=== PATIENT | female | born 1995 | race Two or more races ===

== ENCOUNTER 2017-04-29 12:53 | Emergency (ER) | payer MEDICAID ==
[~2017-04-29] VITALS: Ht 172.7 cm; Wt 122.0 kg
[2017-04-29 13:26] LABS: Basophils # (auto) 0.1 uL; Basophils % (auto) 0.7 % (0.0-2.0); Eosinophils # (auto) 0.1 uL; Eosinophils % (auto) 0.8 % (0.0-7.0); Hematocrit 40.9 % (36.0-46.0); Lymphocytes # (auto) 2.3 uL; Lymphocytes % (auto) 27.5 % (10.0-50.0); Mean Corpuscular Hemoglobin 29.2 pg (28.0-32.0); Mean Corpuscular Hgb Conc. 34.2 g/dL (32.0-36.0); Mean Corpuscular Volume 85.5 fL (80.0-100.0); Monocytes # (auto) 0.7 uL; Neutrophils # (auto) 5.2 uL; Platelet Count (auto) 399 10^3/uL (140-450); White Blood Cell 8.3 10^3/uL (4.4-10.8)
[2017-04-29 13:48] LABS: Albumin 3.9 g/dL (3.4-5.0); BUN/Creatinine Ratio 8.3; Calcium 8.9 mg/dL (8.5-10.1); Potassium 4.1 mmol/L (3.5-5.1)
[2017-04-29 13:52] LABS: Bilirubin, Total 1.1 mg/dL (0.2-1.0); Total Protein 7.4 g/dL (6.4-8.2)
[2017-04-29 16:07] VITALS: BP 160/94
[2017-04-29] MEDS ORDERED: KETOROLAC TROMETH 60MG/2ML VIAL IM ONE (16:45)
== END 2017-04-29 17:06 | disposition home or self-care (01) ==
LOC: ER 13:06
DX: N20.0 Calculus of kidney (principal); N39.0 Urinary tract infection, site not specified; N83.209 Unspecified ovarian cyst, unspecified side
CPT/HCPCS: 36415; 74176; 80053; 84702; 85025; 96372; 99285; J1885

== ENCOUNTER 2017-08-16 15:46 | Emergency (ER) | payer MEDICAID ==
[~2017-08-16] VITALS: Ht 167.6 cm; Wt 119.7 kg
[2017-08-16 16:21] LABS: Basophils # (auto) 0.1 uL; Basophils % (auto) 0.7 % (0.0-2.0); Eosinophils # (auto) 0.1 uL; Eosinophils % (auto) 0.7 % (0.0-7.0); Hematocrit 42.9 % (36.0-46.0); Hemoglobin 14.8 g/dL (12.2-16.2); Lymphocytes # (auto) 2.1 uL; Lymphocytes % (auto) 13.8 % (10.0-50.0); Mean Corpuscular Hemoglobin 29.7 pg (28.0-32.0); Mean Corpuscular Hgb Conc. 34.5 g/dL (32.0-36.0); Mean Corpuscular Volume 86.2 fL (80.0-100.0); Mean Platelet Volume 7.8 fL (6.9-10.8); Monocytes # (auto) 1.2 uL; Monocytes % (auto) 7.7 % (0.0-12.0); Neutrophils # (auto) 11.9 uL; Neutrophils % (auto) 77.1 % (37.0-80.0); Platelet Count (auto) 338 10^3/uL (140-450); Red Cell Distribution Width 12.2 % (11.8-14.3); White Blood Cell 15.4 10^3/uL (4.4-10.8)
[2017-08-16 16:48] LABS: Albumin 4.4 g/dL (3.4-5.0); BUN/Creatinine Ratio 11.6; Bilirubin, Total 1.1 mg/dL (0.2-1.0); Calcium 9.1 mg/dL (8.5-10.1); Potassium 3.7 mmol/L (3.5-5.1)
[2017-08-16 17:15] LABS: Urine Bilirubin Negative (Negative); Urine Blood 2+ /uL (Negative); Urine Color Yellow (Yellow); Urine Glucose Normal (Normal); Urine Ketone 2+ (Negative); Urine Mucus FEW (None Seen); Urine Nitrite Negative (Negative); Urine RBC 51 /hpf (0 - 4); Urine Squamous Epithelial Cell MOD /hpf (<5)
[2017-08-16 17:29] VITALS: BP 117/73
[2017-08-16] MEDS ORDERED: cefTRIAXone 1GM/50ML D5W 50 ML IV ONE (18:00)
== END 2017-08-16 18:41 | disposition home or self-care (01) ==
LOC: ER 15:50
DX: N13.2 Hydronephrosis with renal and ureteral calculous obstruction (principal); N39.0 Urinary tract infection, site not specified
CPT/HCPCS: 36415; 74176; 80053; 81001; 81025; 85025; 96365; 99285; J0696; 96360

== ENCOUNTER 2018-09-25 08:42 | Emergency (ER) | payer MEDICAID, OTHER ==
[~2018-09-25] VITALS: Ht 172.7 cm; Wt 104.3 kg
[2018-09-25] MEDS ORDERED: SODIUM CHLORIDE 0.9% 1,000 ML IV ONE (09:09)
[2018-09-25] MEDS ORDERED: KETOROLAC TROMETH 30 MG/ML 1ML VIAL IV ONE (09:15)
[2018-09-25 09:26] VITALS: BP 151/77
[2018-09-25 09:30] LABS: Basophils # (auto) 0 uL; Basophils % (auto) 0.3 % (0.0-2.0); Eosinophils # (auto) 0 uL; Eosinophils % (auto) 0.4 % (0.0-7.0); Hematocrit 44.7 % (36.0-46.0); Hemoglobin 14.9 g/dL (12.2-16.2); Lymphocytes # (auto) 1.9 uL; Lymphocytes % (auto) 16.3 % (10.0-50.0); Mean Corpuscular Hemoglobin 28.9 pg (28.0-32.0); Mean Corpuscular Hgb Conc. 33.3 g/dL (32.0-36.0); Monocytes # (auto) 0.6 uL; Monocytes % (auto) 5.5 % (0.0-12.0); Neutrophils # (auto) 8.9 uL; Neutrophils % (auto) 77.5 % (37.0-80.0); Platelet Count (auto) 309 10^3/uL (140-450); Red Blood Cells 5.14 10^6/uL (4.0-5.20); Red Cell Distribution Width 12.5 % (11.8-14.3); White Blood Cell 11.4 10^3/uL (4.4-10.8)
[2018-09-25 09:39] LABS: Urine Bacteria FEW /hpf (None Seen); Urine Blood 3+ /uL (Negative); Urine Mucus FEW (None Seen); Urine WBC 15 /hpf (0 - 5)
[2018-09-25 09:50] LABS: Albumin 3.9 g/dL (3.4-5.0); Calcium 8.8 mg/dL (8.5-10.1); Potassium 3.9 mmol/L (3.5-5.1)
[2018-09-25 09:55] LABS: Bilirubin, Total 0.8 mg/dL (0.2-1.0); Total Protein 7.5 g/dL (6.4-8.2)
== END 2018-09-25 13:06 | disposition home or self-care (01) ==
LOC: ER 08:42
DX: N83.201 Unspecified ovarian cyst, right side (principal); R11.2 Nausea with vomiting, unspecified; Z87.442 Personal history of urinary calculi
CPT/HCPCS: 36415; 80053; 81001; 81025; 85025; 96361; 96374; 99284; J1885; J7030